=== PATIENT | female | born 1975 | race Caucasian/White ===

== ENCOUNTER → 2017-01-09 | Outpatient (CLI) | payer BC ==
--- NOTE | 2017-01-09 13:46 | KCIC ---
MR CERVICAL SPINE HISTORY: Left shoulder pain. Neck pain. Technique: Sagittal T2, sagittal STIR, sagittal T1, and axial gradient echo imaging was obtained of the cervical spine. FINDINGS: There is straightening of the cervical lordosis. No anterolisthesis or retrolisthesis. Vertebral body heights are maintained. Bone marrow signal is normal apart from a benign-appearing hemangioma at T2. The cord is normal in caliber with no signal abnormality identified. At the level of C6-7 there is a small disc bulge which abuts the ventral surface of the cord but does not cause mass effect upon it. IMPRESSION: There is straightening of the cervical lordosis. Mild degenerative disc disease is noted at C6-C7. There is no significant mass effect upon the cord or cord signal abnormality. Electronically signed by: Gagan Stern MD (01/09/2017 1:42 PM)
== END | disposition home or self-care (01) ==
LOC: KCIC MRI 10:58
PROVIDERS: ATTEND General Practice
DX: S46.912A Strain of unspecified muscle, fascia and tendon at shoulder and upper arm level, left arm, initial encounter (principal); X58.XXXA Exposure to other specified factors, initial encounter; Y93.89 Activity, other specified; Y92.89 Other specified places as the place of occurrence of the external cause; Y99.8 Other external cause status
CPT/HCPCS: 72141